=== PATIENT | female | born 1995 | race Caucasian/White ===

== ENCOUNTER 2016-11-18 23:24 | Emergency (ER) | payer OTHER ==
[2016-11-19 01:33] LABS: HEMOGLOBIN 12.7 gm/dl (12.3-15.3); RED BLOOD COUNT 4.18 M/UL (4.00-5.10); WHITE BLOOD COUNT 6.5 K/UL (4.5-11.0)
[2016-11-19 01:54] LABS: BUN/CREATININE RATIO 17 (0-10)
== END 2016-11-19 05:20 | disposition home or self-care (01) ==
LOC: ER1 23:24
PROVIDERS: Family Medicine
DX: R07.9 Chest pain, unspecified (principal); R00.0 Tachycardia, unspecified
CPT/HCPCS: 36415; 71020; 80053; 82550; 82553; 83874; 84484; 85025; 85379; 93005; 99285

== ENCOUNTER 2016-12-22 16:04 | Emergency (ER) | payer OTHER ==
[2016-12-22 19:08] LABS: HEMOGLOBIN 13.2 gm/dl (12.3-15.3); RED BLOOD COUNT 4.42 M/UL (4.00-5.10); WHITE BLOOD COUNT 5.7 K/UL (4.5-11.0)
[2016-12-22 19:29] LABS: BUN/CREATININE RATIO 20 (0-10)
== END 2016-12-22 23:45 | disposition home or self-care (01) ==
LOC: ER1 16:04
PROVIDERS: Physician Assistant
DX: R07.2 Precordial pain (principal); R55 Syncope and collapse; R06.02 Shortness of breath
CPT/HCPCS: 36415; 70450; 71010; 80053; 80307; 81001; 84484; 84703; 85025; 85379; 87086; 93005; 96360; 99285; J7030; J7050; Q9963